=== PATIENT | female | born 1950 | race Caucasian/White ===

== ENCOUNTER 2016-05-22 13:56 | Emergency (ER) | payer OTHER ==
--- NOTE | 2016-05-22 15:01 | DIAGNOSTIC IMAGING REPORT ---
PROCEDURE: XR CHEST 1 VIEW INDICATION: CHEST PAIN TECHNIQUE: Portable AP view (1425 hours). COMPARISON: None. FINDINGS: Lungs are clear. Heart and mediastinum are normal. Thorax is normal. IMPRESSION: 1. Negative chest.
--- NOTE | 2016-05-22 20:26 | ED ORDER SUMMARY ---
..... Patient: MALLORY HERNANDEZ OrderSheet [facility] VisitID: [id number] [place] [address] 65y, F Registration Date/Time: 05/22/2016 ORDER SHEET Weight: 49.8 kg (stated) Allergies: Codeine GENERAL ORDERS: Chest 1V Urgent (14:18 05/22/2016 Courtney Hameed) (Ack 14:27 Ciro) (14:27 SRoberts R.N.) Drums Teacher (Continuous) (cp) (14:18 05/22/2016 Courtney Hameed) (14:27 SRoberts R.N.) CBC w Diff Urgent (14:05/22/2016 Courtney Hameed) (Ack 14:27 Ciro) (14:27 SRoberts R.N.) CMP Urgent (14:05/22/2016 Courtney Hameed) (Ack 14:27 Ciro) (14:27 SRoberts R.N.) UA-Culture if indicated Urgent (14:19 05/22/2016 Courtney Hameed) (Ack 14:27 Ciro) (15:41 KWilliams R.N.) PT with INR Urgent (14:19 05/22/2016 Courtney Hameed) (Ack 14:27 Ciro) (14:27 SRoberts R.N.) PTT Urgent (14:05/22/2016 Courtney Hameed) (Ack 14:27 Ciro) (14:27 SRoberts R.N.) D-Dimer Urgent (14:19 05/22/2016 Courtney Hameed) (Ack 14:27 Ciro) (14:27 Nilamts R.N.) Troponin-I Urgent (14:05/22/2016 Courtney Hameed) (Ack 14:27 Ciro) (14:27 SRoberts R.N.) Pulse oximeter (14:05/22/2016 Courtney Hameed) (14:27 SRdariants R.N.) EKG - ER Stat (14:05/22/2016 Courtney Hameed) (14:21 LTapper) Troponin-I (draw 2 hours after first trop drawn) Urgent (15:14 05/22/2016 Courtney Hameed) (Ack 15:33 Ciro) (17:28 SRoberbenito R.N.) Troponin-I (two hours after second troponin drawn) Urgent (17:27 05/22/2016 Courtney Hameed) (Ack 17:33 Ciro) (18:23 LTapper) MEDICATION ORDERS: Aspirin PO 325 mg (Do not crush or chew, NOW) (15:30 05/22/2016 Courtney Hameed) (15:41 Heath R.N.) NitroGLYCERIN SL 0.4 mg (Do not crush or chew, NOW) (15:30 05/22/2016 Courtney Hameed) (15:42 Heath R.N.) GI Cocktail WHITE PO 45 mL (NOW) (17:22 05/22/2016 Cristina R.N. verbal order read back to Courtney Hameed) (17:26 SRoberts R.N.) IV FLUIDS: IV Saline Lock (14:19 05/22/2016 Courtney Hameed) (14:35 Heath R.N.) Zofran IV 4 mg (NOW) (19:24 05/22/2016 Courtney Hameed) (Ack 19:34 SRoberts R.N.) (19:50 SRoberts R.N.) Morphine IV 4 mg (HIGH ALERT MEDICATION, NOW) (19:24 05/22/2016 Courtney Hameed) (Ack 19:34 SRoberts R.N.) (19:51 SRoberts R.N.) Heparin IV : initial bolus 60 units/kg, then none - for X1 (HIGH ALERT MEDICATION, NOW) (20:42 05/22/2016 Courtney Hameed) (Cancelled: Duplicate Order20:44 Courtney Hameed) Heparin IV : initial bolus none -, then 12 units/kg/hr for X1 (HIGH ALERT MEDICATION, NOW) (max 1000 an hour) (20:43 05/22/2016 Courtney Hameed) (Ack 21:31 SRoberts R.N.) (21:52 SRoberts R.N.) Heparin IV : initial bolus 60 units/kg, then none - for X1 (HIGH ALERT MEDICATION, NOW) (max 5000 units) (20:44 05/22/2016 Courtney Hameed) (Ack 21:32 SRoberts R.N.) (21:54 Cristina R.N.) ORDER SHEET NOTES: [Electronically signed by Kathrin Cole R.N. (22:23 05/22/2016)] [Electronically signed by Basil Chaves Dr. (09:07 05/25/2016)] [Electronically locked/signed by Kathrin Cole R.N. (22:23 05/22/2016)]
--- NOTE | 2016-05-22 20:26 | ED CLINICAL REPORT ---
Clinical Report - Physicians/Mid Levels [facility] [address] [place] [address] 05/22/2016 13:57 Patient: MALLORY HERNANDEZ Arrived- By private vehicle. Historian- patient. HISTORY OF PRESENT ILLNESS Chief Complaint: CHEST PAIN. This started today approximately 5 hours prior to arrival in the emergency department and is still present (staying the same). It was abrupt in onset and has been constant but is not gone now. Onset during rest. It is described as tightness and it is described as located in the central chest area and radiating to the upper back, to the right shoulder and to the left shoulder. At its maximum, severity described as moderate. Modifying factors- (laying back worsens the pain, sitting up relieves). No nausea, vomiting, difficulty breathing or diaphoresis. (no recent trauma, hemoptysis, or leg swelling). Similar symptoms previously: None. Recent medical care: Not recently seen/assessed. REVIEW OF SYSTEMS No fever, chills, cough or pedal edema. All systems otherwise negative, except as recorded above. PAST HISTORY See nurses notes. Denies the following risk factors for DVT/PE - history of DVT and pulmonary embolism, recent surgery, recent DE and congestive heart failure. Denies the following risk factors for DVT/PE - cancer, clotting disorder, estrogens, obesity and immobility. Denies the following risk factors for DVT/PE - advanced in age and vena cava filter. SOCIAL HISTORY Smoker- current status unknown. No alcohol use or drug use. No recent travel. Is a local resident. FAMILY HISTORY History of heart disease (sister with heart attack at 65 yo). ADDITIONAL NOTES The nursing notes have been reviewed. PHYSICAL EXAM Vital Signs: 05/22/2016 13:59 BP: 156/81. HR: 76. RR: 16. O2 saturation: 98%. Blood pressure normal. Oxygen saturation normal. Appearance: Alert. Oriented X3. No acute distress. Eyes: Pupils equal, round and reactive to light. Eyes normal inspection. ENT: Ears normal. Nose normal. Pharynx normal. Neck: Normal inspection. Neck supple. No JVD. CVS: Normal heart rate and rhythm. Heart sounds normal. Pulses normal. No decreased pulses. Respiratory: No respiratory distress. Breath sounds normal. Chest nontender. No rales, rhonchi or wheezes. Abdomen: Soft and nontender. Bowel sounds normal. No organomegaly. No mass. Femoral pulses equal. Back: Normal external inspection. Skin: Skin warm and dry. Normal skin color. No rash. Normal skin turgor. Extremities: Extremities exhibit normal ROM. No lower extremity edema. LABS, X-RAYS, AND EKG EKG: No acute process. Normal sinus rhythm. Rate: 73. Normal P waves. Normal NELSON. Normal QRS complex. Q waves in lead V1, V2 and V3 consistent with anteroseptal infarction (age undeterminded). Normal axis. Normal ST and T waves, QT and QTc. No ST elevation or depression. Changes present when compared to prior EKG. (slight change but likely due to lead placement). The study has been interpreted contemporaneously by me. The study has been independently viewed by me. The EKG appears to be a good tracing. Chest X-ray: (PROCEDURE: XR CHEST 1 VIEW INDICATION: CHEST PAIN TECHNIQUE: Portable AP view (1425 hours). COMPARISON: None. FINDINGS: Lungs are clear. Heart and mediastinum are normal. Thorax is normal. IMPRESSION: 1. Negative chest.). Views: PA. The X-rays were independently viewed by me and interpreted by the radiologist. The X-rays were discussed with the radiologist (via pacs). Laboratory Tests: UA-Culture if indicated: (CHAYITO: 05/22/2016 15:32) ( MsgRcvd 05/22/2016 15:50) Final results Test Result Flag Units (Reference) URINE COLOR STRAW URINE APPEARANCE CLEAR URINE GLUCOSE NEGATIVE (NEGATIVE) URINE BILIRUBIN NEGATIVE (NEGATIVE) URINE KETONE NEGATIVE (NEGATIVE) URINE SPECIFIC GRAVITY 1.010 (1.010-1.030) URINE PH 7.0 (5.0-8.0) URINE PROTEIN NEGATIVE (NEGATIVE) URINE UROBILINOGEN 0.2 EU/dL (0.2-1.0) URINE NITRITE NEGATIVE (NEGATIVE) URINE BLOOD 2+ (NEGATIVE) URINE LEUK ESTERASE NEGATIVE (NEGATIVE) URINE RBC 3-5 rbc/hpf (0-1) URINE WBC 0-1 wbc/hpf (0-1) URINE EPITHELIAL CELLS 0-1 EPI/hpf (0-5) URINE BACTERIA NONE SEEN (NONE SEEN) URINE COMMENT CULT NOT INDICATED URINE CULTURES ARE SET-UP BASED ON THE FOLLOWING CRITERIA:POSITIVE NITRITEPOSITIVE LEUKOCYTE ESTERASEGREATER THAN 10 WHITE BLOOD CELLSMODERATE (2+) OR GREATER BACTERIA CBC w Diff: (CHAYITO: 05/22/2016 14:10) ( [facility] 05/22/2016 14:29) Final results Test Result Flag Units (Reference) WHITE BLOOD COUNT 11.3 K/uL (4.5-11.5) RED BLOOD COUNT 4.60 M/uL (4.00-5.20) HEMOGLOBIN 14.7 gm/dL (12.0-16.0) HEMATOCRIT 43.4 % (36.0-46.0) MEAN CELL VOLUME 94 fL (80-100) MEAN CORPUSCULAR HGB 32 pg (26-34) MEAN CORPUSCULAR HGB CONC 34 g/dL (31-37) RED CELL DISTRIBUTION WIDTH 13.0 % (11.6-14.8) PLATELET COUNT 307 K/uL (150-400) NEUTROPHIL % 84.9 H % (50-75) LYMPH % 10.1 L % (25-40) MONO % 4.5 % (3-14) EOSINOPHIL % 0.2 % (0-4) BASOPHIL % 0.3 % (0-2) PT with INR: (CHAYITO: 05/22/2016 14:10) ( [facility] 05/22/2016 14:36) Final results Test Result Flag Units (Reference) INR 0.9 (0.8-1.2) Low Intensity Therapy: INR 1.5-2.0 PT range 18.5-23.1Mod.Intensity Therapy: INR 2.0-3.0 PT range 23.1-31.5High Intensity Therapy: INR 2.5-3.5 PT range 27.4-35.5High Intensity Therapy 2: INR 3.0-4.0 PT range 31.5-39.3 APTT 32 SECONDS (24-34) D-DIMER QUANTITATIVE 0.28 ug/mLFEU (0.27-0.52) The primary value of this quantitative assay relates toits negative predictive value (i.e. exclusion) of pulmonaryembolism/deep vein thrombosis/DIC.Elevated levels of d-dimer may also occur with:, age, cancer, inflammation, liver disease,post-op, infection, hematoma, coronary disease, peripheralarteriopathy, bleeding disorders and thrombolytic treatment.Results should be correlated with other clinical andradiological data.Testing Methodology: Latex Immunoassay Troponin-I: (CHAYITO: 05/22/2016 18:20) ( [facility] 05/22/2016 18:58) Final results Test Result Flag Units (Reference) TROPONIN I 0.05 ng/mL (0.00-1.5) TROPONIN REFERENCE RANGE:<0.1 NEGATIVE0.1-1.5 INDETERMINANT>1.5 POSITIVE Troponin-I: (CHAYITO: 05/22/2016 16:15) ( [facility] 05/22/2016 16:47) Final results Test Result Flag Units (Reference) TROPONIN I 0.05 ng/mL (0.00-1.5) TROPONIN REFERENCE RANGE:<0.1 NEGATIVE0.1-1.5 INDETERMINANT>1.5 POSITIVE CMP: (CHAYITO: 05/22/2016 14:10) ( [facility] 05/22/2016 14:39) Final results Test Result Flag Units (Reference) GLUCOSE 101 mg/dL (70-110) BUN 10 mg/dL (7-18) CREATININE 0.7 mg/dL (0.6-1.3) Estimated GFR >60 mL/min Estimated GFR- >60 mL/min Note: Persistent reduction over 3 months in eGFR<60 mL/min/1.73 m2 defines CKD. Patients with eGFR values>=60 mL/min/1.73 m2 may also have CKD if evidence ofpersistent proteinuria. Additional information may be foundat www.[email or web address].org. SODIUM 144 mmol/L (136-145) POTASSIUM 4.2 mmol/L (3.5-5.1) CHLORIDE 107 mmol/L (98-107) CARBON DIOXIDE 28 mmol/L (21-32) CALCIUM 8.2 L mg/dL (8.5-10.1) TOTAL PROTEIN 7.4 g/dL (6.4-8.2) ALBUMIN 3.8 g/dL (3.3-5.0) BILIRUBIN, TOTAL 0.3 mg/dL (0.0-1.0) ALKALINE PHOSPHATASE 101 U/L (46-116) AST (SGOT) 11 L U/L (15-37) ALT (SGPT) 18 U/L (12-78) TROPONIN I <0.05 L ng/mL (0.00-1.5) TROPONIN REFERENCE RANGE:<0.1 NEGATIVE0.1-1.5 INDETERMINANT>1.5 POSITIVE . PROGRESS AND PROCEDURES Course of Care: the patient is a pleasant 65-year-old female with past medical history significant for hypertension and smoking as well as a recent family member who had a heart attack at 65 reasoning for evaluation of chest pain. At this time differential diagnosis includes pulmonary embolism, dissecting aortic aneurysm, and acute myocardial infarction. Patient will be evaluated of laboratory studies including chest x-ray, EKG, urinalysis. Patient has no risk factors for DVT except for smoking and age. Feel the d-dimer would be a sufficient test toensure patient is at low risk for pulmonary embolism andthoracic aortic dissection. The patient is slightly hypertensive here in the emergency department. Patient appears nontoxic. We'll monitor closely. EKG shows no acute abnormalities compared to prior EKG. Some concern for possible anterior septalinfarct however noted on machine read. Workup shows patient's to have an undetectable troponin at this time. D-dimer negative. Low suspicion for DVT, PE, or thoracic AA. We'll repeat troponin at 2 hours for delta troponin. patient with no improvement with nitro. Second troponin was resulted. The troponin is noted to be at 0.05. This is at the lowest limit of detection for the machine. Had called laboratory to verify that the machine was actually reading a troponin and nota miscommunication or error. Lab verified that the machine did in fact startdetecting levels of troponin, However because of the extremely low levels of troponin, will obtain a 4 hour troponin for further evaluation of the patient's pain. Had discussion with patient in regards to the update of her laboratory studies including normal d-dimer. Because of this, do not feel patient has thoracic aortic dissection or pulmonary embolism. Do not feel patient needs further workup for these entities at this time. Patient declines further treatment with nitro. A third troponin was ordered which was resulted at the same level as the second troponin. In light of this, cardiology was consulted. Consult with cardiology recommended the patient be transferred to their facility for further cardiac monitoring and workup. The patient will be transferred via ambulance. Had discussion with patient in regards to the risks and benefits of transfer. obtained written consent for transfer. Updated patient on workup, diagnosis, and plan of care. Patient and family are agreeable to the treatment plan. Per cardiology, patient to be started on heparin and aspirin. Aspirin Has been given. Had discussion with patient in regards to starting her on blood thinners. Patient is agreeable to the treatment after discussion with her on the risks and benefits of heparin. Critical care performed (95 minutes). Time is exclusive of separately billable procedures. Time includes: direct patient care, patient reassessment, coordination of patient care, interpretation of data (laboratory data), review of patient's medical records, medical consultation, family consultation regarding treatment decisions and documentation of patient care. Consult obtained. cardiology. Disposition: Benefits, risks and alternatives to transfer explained to patient and family. Transferred to [facility]. CLINICAL IMPRESSION unstable angina acute. (Electronically signed by Basil Chaves Dr. 05/25/2016 9:07)
--- NOTE | 2016-05-22 20:26 | ED ORDER SUMMARY ---
..... Patient: MALLORY HERNANDEZ OrderSheet [facility] VisitID: [id number] [place] [address] 65y, F Registration Date/Time: 05/22/2016 ORDER SHEET Weight: 49.8 kg (stated) Allergies: Codeine GENERAL ORDERS: Chest 1V Urgent (14:18 05/22/2016 Courtney Hameed) (Ack 14:27 Ciro) (14:27 SRoberts R.N.) Fire Hose Curer (Continuous) (cp) (14:18 05/22/2016 Courtney Hameed) (14:27 SRoberts R.N.) CBC w Diff Urgent (14:05/22/2016 Courtney Hameed) (Ack 14:27 Ciro) (14:27 SRoberts R.N.) CMP Urgent (14:05/22/2016 Courtney Hameed) (Ack 14:27 Ciro) (14:27 SRoberts R.N.) UA-Culture if indicated Urgent (14:19 05/22/2016 Courtney Hameed) (Ack 14:27 Ciro) (15:41 KWilliams R.N.) PT with INR Urgent (14:19 05/22/2016 Courtney Hameed) (Ack 14:27 Ciro) (14:27 SRoberts R.N.) PTT Urgent (14:05/22/2016 Courtney Hameed) (Ack 14:27 Ciro) (14:27 SRoberts R.N.) D-Dimer Urgent (14:19 05/22/2016 Courtney Hameed) (Ack 14:27 Ciro) (14:27 Nilamts R.N.) Troponin-I Urgent (14:05/22/2016 Courtney Hameed) (Ack 14:27 Ciro) (14:27 SRoberts R.N.) Pulse oximeter (14:05/22/2016 Courtney Hameed) (14:27 SRdariants R.N.) EKG - ER Stat (14:05/22/2016 Courtney Hameed) (14:21 LTapper) Troponin-I (draw 2 hours after first trop drawn) Urgent (15:14 05/22/2016 Courtney Hameed) (Ack 15:33 Ciro) (17:28 SRoberbenito R.N.) Troponin-I (two hours after second troponin drawn) Urgent (17:27 05/22/2016 Courtney Hameed) (Ack 17:33 Ciro) (18:23 LTapper) MEDICATION ORDERS: Aspirin PO 325 mg (Do not crush or chew, NOW) (15:30 05/22/2016 Courtney Hameed) (15:41 Heath R.N.) NitroGLYCERIN SL 0.4 mg (Do not crush or chew, NOW) (15:30 05/22/2016 oCurtney Hameed) (15:42 Heath R.N.) GI Cocktail WHITE PO 45 mL (NOW) (17:22 05/22/2016 Cristina R.N. verbal order read back to Courtney Hameed) (17:26 SRoberts R.N.) IV FLUIDS: IV Saline Lock (14:19 05/22/2016 Courtney Hameed) (14:35 Heath R.N.) Zofran IV 4 mg (NOW) (19:24 05/22/2016 Courtney Hameed) (Ack 19:34 SRoberts R.N.) (19:50 SRoberts R.N.) Morphine IV 4 mg (HIGH ALERT MEDICATION, NOW) (19:24 05/22/2016 Courtney Hameed) (Ack 19:34 SRoberts R.N.) (19:51 SRoberts R.N.) Heparin IV : initial bolus 60 units/kg, then none - for X1 (HIGH ALERT MEDICATION, NOW) (20:42 05/22/2016 Courtney Hameed) (Cancelled: Duplicate Order20:44 Courtney Hameed) Heparin IV : initial bolus none -, then 12 units/kg/hr for X1 (HIGH ALERT MEDICATION, NOW) (max 1000 an hour) (20:43 05/22/2016 Courtney Hameed) (Ack 21:31 SRoberts R.N.) (21:52 SRoberts R.N.) Heparin IV : initial bolus 60 units/kg, then none - for X1 (HIGH ALERT MEDICATION, NOW) (max 5000 units) (20:44 05/22/2016 Courtney Hameed) (Ack 21:32 SRoberts R.N.) (21:54 Cristina R.N.) ORDER SHEET NOTES: [Electronically signed by Kathrin Cole R.N. (22:23 05/22/2016)] [Electronically signed by Basil Chvaes Dr. (09:07 05/25/2016)] [Electronically locked/signed by Kathrin Cole R.N. (22:23 05/22/2016)]
--- NOTE | 2016-05-22 20:26 | ED NURSING NOTES ---
Clinical Report - Nurses [facility] [address] [place] [address] 05/22/2016 13:57 Patient: MALOLRY HERNANDEZ TRIAGE Triage time 13:55. Acuity: LEVEL 2. Chief Complaint: BACK PAIN. 14:02 05/22/16. Alert. No acute distress. ELISE COMA SCORE: [place] Coma Scale: 15- eyes open spontaneously (4); best verbal response- oriented x 4 (5); best motor response- obeys commands (6). --14:02 William Garcia R.N. 13:59 05/22/16. BP: 156/81 taken on the left arm, while lying. HR: 76. RR: 16. O2 saturation: 98% on room air. Pain level now 9/10. --14:02 William Garcia R.N. Weight: 49.8 kg stated. Height/Length: 60 inches Per Patient. BMI: 21.4. --14:01 William Garcia R.N. Medications Triazolam Oral. --14:01 William Garcia R.N. Atenolol Oral. --14:01 William Garcia R.N. ALPRAZolam Oral. --14:01 William Garcia R.N. Medication/allergy information source: the patient. --14:02 William Garcia R.N. Allergies Codeine. (Doesn't like codiene) --14:01 William Garcia R.N. History Historian: patient. Accompanied by spouse. Primary physician (tyrone). Patient did not arrive by private vehicle. ( sudden onset back pain, described as radiating back between shoulder blades and down left arm.). Onset. (3 hours ago). No history of recent trauma. SOCIAL HX: Heavy tobacco smoker (cigarette)- less than 1 pack per day. No alcohol use or drug use. FALL RISK ASSESSMENT: Fall risk assessment completed. No fall risk identified. NUTRITIONAL RISK ASSESSMENT: The nutritional risk assessment revealed no deficiencies. FUNCTIONAL ASSESSMENT: Functional assessment: no impairments noted. LEARNING NEEDS ASSESSMENT: The learning needs assessment revealed no barriers. SKIN INTEGRITY ASSESSMENT: Skin integrity risk assessment completed. No skin integrity risk identified. --14:02 William Garcia R.N. PROBLEMS: Atypical Chest Pain. Anxiety Reaction. Hematuria. Lower Extremity Pain. Fibromyalgia. Arthritis. --14:01 William Garcia R.N. ADDITIONAL SURGERIES: Appendectomy. Cholecystectomy. Neck Surgery. --14:01 William Garcia R.N. Interventions ID band on patient. To treatment room. --14:02 William Garcia R.N. PHYSICAL ASSESSMENT 14:03 05/22/16. Ambulatory to room. GENERAL / NEURO / PSYCH: Alert. Oriented X 4. Appears anxious. RESPIRATORY: Respirations not labored. CVS: Capillary refill less than 2 seconds. GI / : Abdomen soft and nontender. EXTREMITIES: Sensation intact in extremities. ROM of extremities within normal limits. BACK: Normal inspection of the neck and back. No neck or back tenderness. ROM of neck and back within normal limits. --14:03 William Garcia R.N. NURSING PROGRESS NOTES 14:03 05/22/16. The plan of care for this patient has been created. Patient gowned. Head of bed elevated. Call light placed in reach. Bed placed in lowest position. Brakes of bed on. Patient ready for evaluation- chart flagged. --14:03 William Garcia R.N. 14:02 05/22/16. BP: 159/80 taken on the right arm. --14:03 William Garcia R.N. 14:13 05/22/2016 Site #1 started via IV in the right antecubital space with an 20g angiocath, with aseptic technique and good blood return; one attempt. Blood drawn: rainbow set. Labeled in the presence of the patient and sent to the lab. Saline lock flushed with 10 mL saline. --14:18 William Garcia R.N. EKG time: (14:06). EKG was performed by a tech and shown to the ED physician. --14:21 Jose Luis Canas 15:37 05/22/2016 Nitroglycerin SL Tablets 0.4 mg given. Allergies verified and confirmed 5 rights. --15:42 William Garcia R.N. 15:38 05/22/2016 Aspirin PO Tablets 325 mg given. Allergies verified and confirmed 5 rights. --15:41 William Garcia R.N. 15:30. Assisted patient to bathroom, to ambulate and back to bed; tolerated well. Patient ID band checked for patient name and birthdate: patient confirmed. Instructions provided to collect clean catch urine and patient verbalized understanding. Clean catch urine collected with return of yellow-colored clear urine; odor is normal; sample sent to lab for urinalysis and culture. Specimen labeled in the presence of the patient. --15:43 William Garcia R.N. 15:48 05/22/2016 Nitroglycerin SL 0.4 mg given. Allergies verified and confirmed 5 rights. --15:49 Kathrin Cole R.N. 16:11 05/22/16. BP: 145/72. HR: 78. RR: 20. O2 saturation: 100% on nasal cannula at 2 liters/minute. Pain level now: 10/31. 15:59 05/22/16. BP: 124/78. HR: 76. RR: 20. O2 saturation: 96% on nasal cannula at 2 liters/minute. 15:47 05/22/16. BP: 156/78. HR: 62. RR: 20. O2 saturation: 99% on nasal cannula at 2 liters/minute. Pain level now: 12/01. 14:02 05/22/16. BP: 159/80 taken on the right arm. --16:12 Kathrin Cole R.N. 17:26 05/22/2016 Mylanta PO 30 mL given. Allergies verified and confirmed 5 rights. --17:26 Kathrin Cole R.N. 17:27 05/22/2016 viscous lidocaine * PO 15 --17:27 Kathrin Cole R.N. 17:32 05/22/16. BP: 140/69. HR: 80. RR: 18. O2 saturation: 99% on room air. Pain level now: 10/31. --17:33 Cole, Kathrin, R.N. Family and spouse at bedside. --17:33 Kathrin Cole R.N. 18:12 05/22/16. BP: 126/66. HR: 85. RR: 20. O2 saturation: 99% on nasal cannula at 2 liters/minute. Pain level now: 10/31. --18:13 Kathrin Cole R.N. ( Patient having multible family members come and go from the room. Patient becoming more upset with each family member leaving. Patient states pain in the upper shoulders in the back, a little better, but the chest still hurts, and nothing helps. VS stable, patient upset. Spoke with the dr, and he went to speak with patient.). --18:20 Kathrin Cole R.N. Checked patient name and birthdate: patient confirmed. Blood samples drawn from the left antecubital space with syringe and 23g butterfly by tech per protocol ; labeled in presence of the patient and sent to lab: green top; cardiac enzymes (3rd set). --18:24 Jose Luis Canas 19:40 05/22/2016 Zofran (Ondansetron HCl) IVP 4 mg given over 1 minute(s) via site #1. Allergies verified and confirmed 5 rights. IV patency established. IV site checked: no pain, redness, or swelling. IV flushed thoroughly pre- and post-medication administration. IVP given by RN. --19:50 Kathrin Cole R.N. 19:41 05/22/2016 Morphine IVP 4 mg given over 1 minute(s) via site #1. Allergies verified, confirmed 5 rights and sedative warning given to the patient. IV patency established. IV site checked: no pain, redness, or swelling. IV flushed thoroughly pre- and post-medication administration. IVP given by RN. --19:51 Kathrin Cole R.N. 21:44 05/22/2016 Heparin IVP 600 unit given over 1 hour(s) via site #1. Allergies verified and confirmed 5 rights. IV patency established. IV site checked: no pain, redness, or swelling. IV flushed thoroughly pre- and post-medication administration. IVP given by RN. --21:54 Kathrin Cole R.N. 21:47 05/22/2016 Heparin IVP 3000 unit given over 1 minute(s) via site #1. Allergies verified and confirmed 5 rights. IV patency established. IV site checked: no pain, redness, or swelling. IV flushed thoroughly pre- and post-medication administration. IVP given by RN. --21:52 Kathrin Cole R.N. DISPOSITION / DISCHARGE Transported via ambulance by EMS ([facility]). Report was given to a nurse. (Jesica). ( Patient transferred to [facility] for cardiology.). --22:04 Kathrin Cole R.N. 21:58 05/22/16. BP: 118/82. HR: 68. RR: 20. O2 saturation: 96% on nasal cannula. Temp: deferred. Pain level now: 10/01. 18:12 05/22/16. BP: 126/66. HR: 85. RR: 20. O2 saturation: 99% on nasal cannula at 2 liters/minute. Pain level now: 10/31. 17:32 05/22/16. BP: 140/69. HR: 80. RR: 18. O2 saturation: 99% on room air. Pain level now: 10/31. 16:11 05/22/16. BP: 145/72. HR: 78. RR: 20. O2 saturation: 100% on nasal cannula at 2 liters/minute. Pain level now: 10/31. 15:59 05/22/16. BP: 124/78. HR: 76. RR: 20. O2 saturation: 96% on nasal cannula at 2 liters/minute. 15:47 05/22/16. BP: 156/78. HR: 62. RR: 20. O2 saturation: 99% on nasal cannula at 2 liters/minute. Pain level now: 12/01. 14:02 05/22/16. BP: 159/80 taken on the right arm. 13:59 05/22/16. BP: 156/81 taken on the left arm, while lying. HR: 76. RR: 16. O2 saturation: 98% on room air. Pain level now 01/01. --22:04 Kathrin Cole R.N. Departure time: :22. --22:22 Kathrin Cole R.N. Locked/Released at 05/22/2016 22:23 by Kathrin Cole R.N.
--- NOTE | 2016-05-25 09:07 | ED DISCHARGE INSTRUCTIONS ---
Patient: MALLORY HERNANDEZ General Instructions [facility] VisitID: [id number] [address] [place] [address] 65y, F Registration Date/Time: 05/22/2016 unstable angina acute. (Electronically signed by Basil Chaves Dr. 05/25/2016 9:07)
--- NOTE | 2016-05-25 09:07 | ED MAR SUMMARY ---
..... Medication Administration Record [facility] [address] [place] [place] [address] Patient: MALLORY HERNANDEZ Visit ID: [id number] 65y, F Weight: 49.8 kg Height/Length: 60 in BMI: 21.4 ALLERGIES: Codeine Given 15:37 05/22/2016 William Garcia R.N. Medication Administered: NITROGLYCERIN [SL], Dose: 0.4 mg Tablets SL. Medication Ordered: NitroGLYCERIN SL 0.4 mg (Do not crush or chew, NOW). Given 15:38 05/22/2016 William Garcia R.N. Medication Administered: ASPIRIN [PO], Dose: 325 mg Tablets PO. Medication Ordered: Aspirin PO 325 mg (Do not crush or chew, NOW). Given 15:48 05/22/2016 Kathrin Cole R.N. Medication Administered: NITROGLYCERIN [SL], Dose: 0.4 mg SL. Medication Ordered: NitroGLYCERIN SL 0.4 mg (Do not crush or chew, NOW). Given 17:26 05/22/2016 Kathrin Cole R.N. Medication Administered: MYLANTA [PO], Dose: 30 mL PO. Medication Ordered: GI Cocktail WHITE PO 45 mL (NOW). Given 17:27 05/22/2016 Kathrin Cole R.N. Medication Administered: viscous lidocaine *, Dose: 15 * PO. Medication Ordered: GI Cocktail WHITE PO 45 mL (NOW). Given 19:40 05/22/2016 Kathrin Cole R.N. Medication Administered: ZOFRAN [IVP] (ONDANSETRON HCL), Dose: 4 mg IVP over 1 minute(s), Site: #1 right AC. Medication Ordered: Zofran IV 4 mg (NOW). Given 19:41 05/22/2016 Kathrin Cole R.N. Medication Administered: MORPHINE [IVP], Dose: 4 mg IVP over 1 minute(s), Site: #1 right AC. Medication Ordered: Morphine IV 4 mg (HIGH ALERT MEDICATION, NOW). Given 21:44 05/22/2016 Kathrin Cole R.N. Medication Administered: HEPARIN [IVP], Dose: 600 unit IVP over 1 hour(s), Site: #1 right AC. Medication Ordered: Heparin IV : initial bolus 60 units/kg, then none - for X1 (HIGH ALERT MEDICATION, NOW) (max 5000 units). Given 21:47 05/22/2016 Kathrin Cole R.N. Medication Administered: HEPARIN [IVP], Dose: 3000 unit IVP over 1 minute(s), Site: #1 right AC. Medication Ordered: Heparin IV : initial bolus none -, then 12 units/kg/hr for X1 (HIGH ALERT MEDICATION, NOW) (max 1000 an hour).
--- NOTE | 2016-05-25 09:07 | ED MED RECONCILIATION SUMMARY ---
Patient: MALLORY HERNANDEZ Medication Reconciliation Report [facility] VisitID: [id number] [address] [place] [address] 65y, F Registration Date/Time: 05/22/2016 Weight: 49.8 kg Height/Length: 60 in. BMI: 21.4 ALLERGIES: Codeine The patient's Home Medications are listed below: THE FOLLOWING MEDICATIONS NEED TO BE RECONCILED: ALPRAZolam Oral Atenolol Oral Triazolam Oral The source(s) of the original Home Medication information: patient The following Medications were given to the patient in the Emergency Department: Aspirin [PO] PO 325 mg, administered: 05/22/2016 3:38:00 PM Nitroglycerin [SL] SL 0.4 mg, administered: 05/22/2016 3:37:00 PM Nitroglycerin [SL] SL 0.4 mg, administered: 05/22/2016 3:48:00 PM Mylanta [PO] PO 30 mL, administered: 05/22/2016 5:26:00 PM viscous lidocaine PO 15, administered: 05/22/2016 5:27:00 PM Zofran [IVP] IVP 4 mg, administered: 05/22/2016 7:40:00 PM Morphine [IVP] IVP 4 mg, administered: 05/22/2016 7:41:00 PM Heparin [IVP] IVP 3000 unit, administered: 05/22/2016 9:47:00 PM Heparin [IVP] IVP 600 unit, administered: 05/22/2016 9:44:00 PM The following Medications were prescribed to the patient: None.
--- NOTE | 2016-05-25 09:07 | ED MAR SUMMARY ---
..... Medication Administration Record [facility] [address] [place] [address] Patient: MALLORY HERNANDEZ Visit ID: [id number] 65y, F Weight: 49.8 kg Height/Length: 60 in BMI: 21.4 ALLERGIES: Codeine Given 15:37 05/22/2016 William Garcia R.N. Medication Administered: NITROGLYCERIN [SL], Dose: 0.4 mg Tablets SL. Medication Ordered: NitroGLYCERIN SL 0.4 mg (Do not crush or chew, NOW). Given 15:38 05/22/2016 William Garcia R.N. Medication Administered: ASPIRIN [PO], Dose: 325 mg Tablets PO. Medication Ordered: Aspirin PO 325 mg (Do not crush or chew, NOW). Given 15:48 05/22/2016 Kathrin Cole R.N. Medication Administered: NITROGLYCERIN [SL], Dose: 0.4 mg SL. Medication Ordered: NitroGLYCERIN SL 0.4 mg (Do not crush or chew, NOW). Given 17:26 05/22/2016 Kathrin Cole R.N. Medication Administered: MYLANTA [PO], Dose: 30 mL PO. Medication Ordered: GI Cocktail WHITE PO 45 mL (NOW). Given 17:27 05/22/2016 Kathrin Cole R.N. Medication Administered: viscous lidocaine *, Dose: 15 * PO. Medication Ordered: GI Cocktail WHITE PO 45 mL (NOW). Given 19:40 05/22/2016 Kathrin Cole R.N. Medication Administered: ZOFRAN [IVP] (ONDANSETRON HCL), Dose: 4 mg IVP over 1 minute(s), Site: #1 right AC. Medication Ordered: Zofran IV 4 mg (NOW). Given 19:41 05/22/2016 Kathrin Cole R.N. Medication Administered: MORPHINE [IVP], Dose: 4 mg IVP over 1 minute(s), Site: #1 right AC. Medication Ordered: Morphine IV 4 mg (HIGH ALERT MEDICATION, NOW). Given 21:44 05/22/2016 Kathrin Cole R.N. Medication Administered: HEPARIN [IVP], Dose: 600 unit IVP over 1 hour(s), Site: #1 right AC. Medication Ordered: Heparin IV : initial bolus 60 units/kg, then none - for X1 (HIGH ALERT MEDICATION, NOW) (max 5000 units). Given 21:47 05/22/2016 Kathrin Cole R.N. Medication Administered: HEPARIN [IVP], Dose: 3000 unit IVP over 1 minute(s), Site: #1 right AC. Medication Ordered: Heparin IV : initial bolus none -, then 12 units/kg/hr for X1 (HIGH ALERT MEDICATION, NOW) (max 1000 an hour).
--- NOTE | 2016-05-25 09:07 | ED DISCHARGE INSTRUCTIONS ---
Patient: MALLORY HERNANDEZ General Instructions [facility] VisitID: [id number] [address] [place] [address] 65y, F Registration Date/Time: 05/22/2016 unstable angina acute. (Electronically signed by Basil Chaves Dr. 05/25/2016 9:07)
--- NOTE | 2016-05-25 09:07 | ED MED RECONCILIATION SUMMARY ---
Patient: MALLORY HERNANDEZ Medication Reconciliation Report [facility] VisitID: [id number] [address] [place] [address] 65y, F Registration Date/Time: 05/22/2016 Weight: 49.8 kg Height/Length: 60 in. BMI: 21.4 ALLERGIES: Codeine The patient's Home Medications are listed below: THE FOLLOWING MEDICATIONS NEED TO BE RECONCILED: ALPRAZolam Oral Atenolol Oral Triazolam Oral The source(s) of the original Home Medication information: patient The following Medications were given to the patient in the Emergency Department: Aspirin [PO] PO 325 mg, administered: 05/22/2016 3:38:00 PM Nitroglycerin [SL] SL 0.4 mg, administered: 05/22/2016 3:37:00 PM Nitroglycerin [SL] SL 0.4 mg, administered: 05/22/2016 3:48:00 PM Mylanta [PO] PO 30 mL, administered: 05/22/2016 5:26:00 PM viscous lidocaine PO 15, administered: 05/22/2016 5:27:00 PM Zofran [IVP] IVP 4 mg, administered: 05/22/2016 7:40:00 PM Morphine [IVP] IVP 4 mg, administered: 05/22/2016 7:41:00 PM Heparin [IVP] IVP 3000 unit, administered: 05/22/2016 9:47:00 PM Heparin [IVP] IVP 600 unit, administered: 05/22/2016 9:44:00 PM The following Medications were prescribed to the patient: None.
== END 2016-05-22 22:22 | disposition short-term general hospital (02) ==
LOC: ED SRH 13:56
DX: I20.0 Unstable angina (principal); Z88.5 Allergy status to narcotic agent; F17.210 Nicotine dependence, cigarettes, uncomplicated